=== PATIENT | male | born 1955 | race Caucasian/White ===

== ENCOUNTER 2018-04-14 19:15 | Inpatient (IN) | payer MEDICAID ==
[~2018-04-14] VITALS: Ht 167.6 cm; Wt 84.8 kg
[2018-04-14 19:20] VITALS: BP 134/86
--- NOTE | 2018-04-14 19:25 | NUR ---
TO LOBBY VIA W/C, WITH DAUGHTER, CATE DE LA PAZ NOTED.
--- NOTE | 2018-04-14 19:35 | NUR ---
PATIENT COMPLAINED OF CHEST CHEST PAIN, EKG DONE.
--- NOTE | 2018-04-14 20:38 | NUR ---
PT TAKEN TO BED 05 BY WHEELCHAIR.
--- NOTE | 2018-04-14 20:40 | NUR ---
PT MARY CARMEN AND PRESENTED ER WITH C/O CHEST, LOWER AND UPPER BACK X TODAY. PT FAMILY STATED THAT SHE FOUND HIM ON THE FLOOR WITH SEVERE PAIN. PT FAMILY STATED THAT HE WAS AT [facility] EARLIER TODAY. PT STATED THAT HIS BACK PAIN IS STABBING AND IS A LEVEL 10/10 AT THIS TIME. A/O X 4. FAMILY AT BEDSIDE.DENIES N/V/D; SKIN IS PINK/WARM/DRY; VSS; PATIENT POSITIONED FOR COMFORT; HOB ELEVATED; BEDRAILS UP X2; BED DOWN. ER MD MADE AWARE OF PT STATUS.
[2018-04-14 20:44] LABS: APPEARANCE,URINE CLEAR (CLEAR); COLOR,URINE YELLOW (YELLOW)
[2018-04-14 20:45] LABS: BILIRUBIN,URINE NEGATIVE (NEGATIVE); BLOOD, URINE NEGATIVE (NEGATIVE); LEUKOCYTE ESTERASE ,URINE NEGATIVE (NEGATIVE); NITRITE, URINE NEGATIVE (NEGATIVE); UGLUCOSE NEGATIVE (NEGATIVE)
[2018-04-14 20:51] LABS: BARBITURATE, URINE NEG. ng/ml (NEG <=200); BENZODIAZEPINE, URINE NEG. ng/mL (NEG <=200); CANNABINOID, URINE NEG. ng/mL (NEG <=50); COCAINE, URINE NEG. ng/mL (NEG <=300); OPIATE, URINE NEG. ng/mL (NEG <=2000); PHENCYCLIDINE SCREEN,URINE NEG. ng/mL (NEG <=25)
[2018-04-14] MEDS ORDERED: NACL 0.9% 1,000 ML IV ONE (20:55)
[2018-04-14] MEDS ORDERED: ASPIRIN 325 MG TAB PO ONE (20:55)
[2018-04-14] MEDS ORDERED: ALBUTEROL SULFATE/IPRATROPIU 3 ML SOL IH ONE (20:55)
--- NOTE | 2018-04-14 21:06 | NUR ---
Respiratory Therapist at bedside for respiratory intervention.
[2018-04-14 21:23] LABS: BASOPHILS # (AUTO) 0.1 K/uL (0.00-0.22); BASOPHILS % (AUTO) 0.7 % (0.0-2.0); EOSINOPHILS # (AUTO) 0.1 K/uL (0-0.4); EOSINOPHILS % (AUTO) 0.9 % (0.0-4.0); HEMATOCRIT 52.8 % (36-52); HEMOGLOBIN 17.8 g/dL (12.0-18.0); LYMPHOCYTES # (AUTO) 2.8 K/uL (2.0-11.5); LYMPHOCYTES % (AUTO) 33.4 % (20.5-51.1); MEAN CORPUSCULAR HEMOGLOBIN 31 pg (27-31); MEAN CORPUSCULAR HGB CONC 34 g/dL (33-37); MEAN CORPUSCULAR VOLUME 91.1 fL (80-94); MONOCYTES # (AUTO) 0.5 K/uL (0.8-1.0); MONOCYTES % (AUTO) 6.1 % (1.7-9.3); NEUTROPHILS % (AUTO) 58.9 % (42.2-75.2); PLATELET COUNT (AUTO) 290 K/uL (140-450); RED CELL DISTRIBUTION WIDTH 12.9 % (11.6-13.7); WHITE BLOOD COUNT (AUTO) 8.5 K/uL (4.8-10.8)
[2018-04-14 21:33] LABS: ANION GAP 12.8 (8-16); CARBON DIOXIDE 32.8 mmol/L (21-32); CREATININE 0.9 mg/dL (0.7-1.3); POTASSIUM 4.6 mmol/L (3.5-5.1)
[2018-04-14 21:45] LABS: ALBUMIN 4.1 g/dL (3.4-5.0); TOTAL BILIRUBIN 0.4 mg/dL (0.0-1.0)
[2018-04-14] MEDS ORDERED: MORPHINE SULFATE 4 MG/ML SYR IVP ONE (22:00)
[2018-04-14] MEDS ORDERED: ONDANSETRON 4 MG/2 ML VIAL IVP ONE (22:00)
[2018-04-14] MEDS: chlordiazePOXIDE 25 MG CAP PO SCH (22:05)
[2018-04-14] MEDS ORDERED: MORPHINE SULFATE 2 MG/ML SYR IVP PRN (22:05)
[2018-04-14] MEDS ORDERED: ACETAMINOPHEN 325 MG TAB PO PRN (22:05)
[2018-04-14] MEDS ORDERED: DOCUSATE SODIUM 100 MG GELCAP PO PRN (22:05)
[2018-04-14] MEDS ORDERED: ONDANSETRON 4 MG/2 ML VIAL IM/IVP PRN (22:05)
[2018-04-14 22:50] LABS: PROTHROMBIN TIME 10.4 secs (10.8-13.4)
--- NOTE | 2018-04-14 22:57 | NUR ---
Patient will be admitted to care of DR. SAL. Admited to MED SURG. Will go to room 111A. Belongings list completed. Report to ASIF GIFFORD . VITALS STABLE.
--- NOTE | 2018-04-14 22:57 | NUR ---
Pt report given to ASIF GIFFORD . Transfer of care at this time.VITALS STABLE.
--- NOTE | 2018-04-14 23:00 | NUR ---
PT ARRIVED AT UNIT VIA GURNEY, PT AMBULATED TO RESTROOM AND TO BED, REPORT RECEIVED FROM ER NURSE ABHIJIT GIFFORD, PT STABLE, NO DISTRESS NOTED, IV TO L WRIST 22G PATENT, INTACT, SL, PT ON ROOM AIR, NO SOB NOTED, V/S TAKEN, PT PO2 88% ADMINISTERED 2LPM O2 VIA NC, PT ANXIOUS, STATED HAVING PAIN, PT JUST HAD MORPHINE ABOUT HALF AN HOUR AGO, WILL NOTIFIED , ORIENT PT TO ROOM, BED, CALL LIGHT, MRSA SWAB TAKEN, NOTIFIED PT REGARDING DRJeremias ORDER OF NPO, PT STATED UNDERSTANDING, INITIAL ASSESSMENT DONE, ALL SAFETY PRECAUTION MET, CALL LIGHT WITHIN REACH, WILL CONTINUE TO MONITOR.
[2018-04-14 23:03] LABS: CHOL/HDL RATIO 3.4 (1-4.5); FREE T4 (FREE THYROXINE) 1.01 ng/dL (0.76-1.46); MAGNESIUM 2.1 mg/dL (1.8-2.4); PHOSPHORUS 3.2 mg/dL (2.5-4.9); THYROID STIMULATING HORMONE 0.92 uIU/mL (0.34-3.74)
[2018-04-14] MEDS: LORazepam 2 MG/ML VIAL IVP PRN (23:21)
--- NOTE | 2018-04-14 23:21 | NUR ---
PER DR. LAMB TO GIVE PT ATIVAN AT THIS MOMENT FOR ANXIETY, ATIVAN ADMINISTERED, PT TOLERATED WELL, NO DISTRESS NOTED, CALL LIGHT WITHIN REACH, WILL CONTINUE TO MONITOR.
[2018-04-14 23:30] VITALS: BP 115/72
[2018-04-14] MEDS ORDERED: ALBUTEROL HFA MDI 90 MCG/ACTUATION 8 GM INH PRN (23:50)
[2018-04-14] MEDS: KETOROLAC 30 MG/ML VIAL IVP PRN (23:52)
--- NOTE | 2018-04-14 23:52 | NUR ---
PT STATED STILL HAVING PAIN, TALK TO DR. LAMB REGARDING PT COMPLAINTS, STATED OK TO GIVE TORADOL AT THIS MOMENT, MEDICATION GIVEN PER MD ORDER, PT TOLERATED WELL, NO DISTRESS NOTED, CALL LIGHT WITHIN REACH, WILL CONTINUE TO MONITOR.
[2018-04-15] MEDS ORDERED: ALBUTEROL SULFATE/IPRATROPIU 3 ML SOL IH PRN
[2018-04-15] MEDS: DEXT 5% / NACL 0.45% 1,000 ML IV SCH ×3 (00:11→14:05)
--- NOTE | 2018-04-15 00:16 | NUR ---
LIBRIUM HELD, PER DR. LAMB TO NOT GIVE IT RIGHT NOW, PT ALREADY BEEN GIVEN ATIVAN EARLIER, PT RESTING, NO DISTRESS NOTED, CALL LIGHT WITHIN REACH, WILL CONTINUE TO MONITOR.
[2018-04-15] MEDS: methylPREDNISolone SS 125 MG/2 ML VIAL IVP SCH ×3 (00:23→19:15)
[2018-04-15] MEDS ORDERED: INFLUENZA VIRUS VACCINE QUAD 0.5 ML SYR IMVAC PRN (00:45)
--- NOTE | 2018-04-15 06:37 | NUR ---
PT WENT TO CT WITH TECH, IN STABLE CONDITION NO DISTRESS NOTED.
--- NOTE | 2018-04-15 07:05 | NUR ---
RECEIVED REPORT FROM PM SHIFT NURSE. AWAITING PT TO RETURN FROM CT.
--- NOTE | 2018-04-15 07:05 | NUR ---
ENDORSED PT TO DAY SHIFT NURSE OMAYRA GIFFORD, PT STILL AT CT.
--- NOTE | 2018-04-15 07:32 | NUR ---
PT CAME BACK FROM CT. ABLE TO AMB FROM WC TO BED WITH STEADY GAIT. NO C/O PAIN AT THIS TIME. CALL LIGHT WITHIN REACH. RT WRIST & RT AC IV INTACT & ASYMPTOMATIC WHEN FLUSHED WITH NS. RESUMED NS @ 130ML/HR TO RT WRIST.
[2018-04-15 08:00] VITALS: BP 123/63
[2018-04-15] MEDS: KETOROLAC 30 MG/ML VIAL IVP PRN ×2 (08:05→17:06)
--- NOTE | 2018-04-15 08:11 | NUR ---
PATIENT STATED SOB WHEN ASKED. VITALS: RATE 18, PULSE 66, 85% ON 28%, BREATH SOUNDS DIMINISHED. ADMINISTERED DUONEB TX- O2 SATURATIONS 98% DURING TX. BREATH SOUNDS IMPROVED. WILL RETURN IN 15 MINUTES TO REASSESS ON 2L NASAL CANNULA.
[2018-04-15 08:16] LABS: BASOPHILS % (AUTO) 0.2 % (0.0-2.0); EOSINOPHILS % (AUTO) 0.1 % (0.0-4.0); HEMATOCRIT 46.3 % (36-52); HEMOGLOBIN 15.6 g/dL (12.0-18.0); LYMPHOCYTES # (AUTO) 0.8 K/uL (2.0-11.5); LYMPHOCYTES % (AUTO) 12.7 % (20.5-51.1); MEAN CORPUSCULAR HEMOGLOBIN 31 pg (27-31); MEAN CORPUSCULAR HGB CONC 34 g/dL (33-37); MEAN CORPUSCULAR VOLUME 91.4 fL (80-94); MONOCYTES % (AUTO) 0.5 % (1.7-9.3); NEUTROPHILS # (AUTO) 5.4 K/uL (1.8-7.7); NEUTROPHILS % (AUTO) 86.5 % (42.2-75.2); PLATELET COUNT (AUTO) 247 K/uL (140-450); RED BLOOD CELL COUNT(AUTO) 5.07 MIL/uL (4.20-6.10); RED CELL DISTRIBUTION WIDTH 13.2 % (11.6-13.7); WHITE BLOOD COUNT (AUTO) 6.3 K/uL (4.8-10.8)
[2018-04-15 08:28] LABS: CARBON DIOXIDE 27.4 mmol/L (21-32); CREATININE 0.7 mg/dL (0.7-1.3); POTASSIUM 4.4 mmol/L (3.5-5.1)
--- NOTE | 2018-04-15 08:35 | NUR ---
PATIENT O2 INCREASED FROM 2L TO 3L. PATIENT WENT FROM O2 SATURATION OF 85% TO 94%. WILL CONTINUE TO MONITOR.
[2018-04-15 08:36] LABS: MAGNESIUM 1.7 mg/dL (1.8-2.4); PHOSPHORUS 2.4 mg/dL (2.5-4.9)
--- NOTE | 2018-04-15 08:41 | NUR ---
PATIENT HAS BEEN SCREENED AND CATEGORIZED MODERATE NUTRITION RISK. PATIENT WILL BE SEEN WITHIN 3-5 DAYS OF ADMISSION. 04/17/18 04/19/[address]
[2018-04-15] MEDS: TAMSULOSIN 0.4 MG CAP PO SCH (09:03)
[2018-04-15] MEDS: LISINOPRIL 10 MG TAB PO SCH (09:04)
[2018-04-15] MEDS: THIAMINE 100 MG TAB PO SCH (09:04)
[2018-04-15] MEDS: ASPIRIN 81 MG TAB.CHEW PO SCH (09:04)
[2018-04-15] MEDS: MULTIVITAMIN 1 TAB PO SCH (09:04)
[2018-04-15] MEDS: PANTOPRAZOLE 40 MG INJ VIAL IVP SCH (09:04)
[2018-04-15] MEDS: METOPROLOL 50 MG TAB PO SCH ×2 (09:05→20:06)
[2018-04-15] MEDS: FOLIC ACID 1 MG TAB PO SCH (09:05)
[2018-04-15] MEDS: chlordiazePOXIDE 25 MG CAP PO SCH ×3 (09:05→17:03)
--- NOTE | 2018-04-15 09:05 | NUR ---
PT ASLEEP, FLACC 0. AROUSABLE BY AUDITORY STIMULI. PT ABLE TAKE PO MEDS WELL. NO C/O PAIN AT THIS TIME. PT WENT BACK TO SLEEP. CALL LIGHT WITHIN REACH.
--- NOTE | 2018-04-15 11:00 | NUR ---
PT C/E FEELING HUNGRY. INFORMED PT THAT HE IS STILL NPO EXCEPT MEDS TO REST HIS BOWEL. PT VERBALIZED UNDERSTANDING BUT CONT TO REQUEST FOR FOOD. DR GIL AWARE. PT INFORMED RE: NEED FOR STOOL COLLECTION FOR HEMOCCULT TEST. PT VERBALIZED UNDERSTANDING OF PROPER USE OF SPECIMEN HAT & TO CALL NURSE AFTER BM. CALL LIGHT WITHIN REACH.
[2018-04-15] MEDS: LORazepam 2 MG/ML VIAL IVP PRN ×3 (13:18→20:06)
--- NOTE | 2018-04-15 13:18 | NUR ---
ADMINISTERED LORAZEPAM FOR ANXIETY/AGITATION WITH TREMORS. PT DENIES ANY PAIN AT THIS TIME. RESPIRATIONS EVEN & UNLABORED. FULL LIQUID DIET TRAY GIVEN. CALL LIGHT WITHIN REACH.
[2018-04-15] MEDS ORDERED: ONDANSETRON 4 MG/2 ML VIAL IM/IVP PRN (13:20)
[2018-04-15] MEDS ORDERED: NICOTINE TRANSD SYS 21 MG/24 HR PATCH TD SCH (13:30)
--- NOTE | 2018-04-15 14:18 | NUR ---
PT ASLEEP AT THIS TIME. RESPIRATIONS EVEN & UNLABORED. NO SIGNS OF DISTRESS. CALL LIGHT WITHIN REACH.
[2018-04-15 16:00] VITALS: BP 112/65
--- NOTE | 2018-04-15 17:34 | NUR ---
LORAZEPAM ADMINISTERED FOR ANXIETY/AGITATION WITH TREMORS. PT FOUND TO BE EATING BURGERS IN ROOM, STATES FAMILY BROUGHT IT FOR HIM. EXPLAINED TO PT RE: DIET ORDER & BENEFITS OF RESTING BOWELS. PT VERBALIZED UNDERSTANDING BUT CONTINUE TO EAT HIS BURGER. PT STATES HE FEELS FINE, NO NAUSEA AT THIS TIME. CALL LIGHT WITHIN REACH.
--- NOTE | 2018-04-15 19:14 | NUR ---
BEDSIDE REPORT GIVEN TO CHIEF OPTOMETRY SERVICE NURSE ASIF. BURSAR AT BEDSIDE SPEAKING WITH PT.
--- NOTE | 2018-04-15 19:15 | NUR ---
RECEIVED BEDSIDE REPORT FROM DAY SHIFT NURSE OMAYRA RN, PT STABLE, NO DISTRESS NOTED, IV TO R AC 20G PATENT, INTACT AND R WRIST 20G PATENT INTACT, INFUSING D5 1/2NS @ 150ML/HR, INFUSING WELL, PT ON 3LPM O2 VIA NC, NO SOB NOTED, PT HAS NO C/O PAIN AT THIS MOMENT, INITIAL ASSESSMENT DONE, ALL SAFETY PRECAUTION MET, CALL LIGHT WITHIN REACH, WILL CONTINUE TO MONITOR.
--- NOTE | 2018-04-15 20:06 | NUR ---
DUE MEDICATION ADMINISTERED, PT STATED FEELING ANXIOUS, AND NERVOUS, ATIVAN ORDERED ADMINISTERED, PT TOLERATED WELL, CALL LIGHT WITHIN REACH, WILL CONTINUE TO MONITOR.
[2018-04-15] MEDS ORDERED: SIMVASTATIN 40 MG TAB PO SCH (21:00)
--- NOTE | 2018-04-15 22:40 | NUR ---
PT SLEEPING,NO DISTRESS NOTED, CALL LIGHT WITHIN REACH, WILL CONTINUE TO MONITOR.
[2018-04-16] VITALS: BP 134/67
--- NOTE | 2018-04-16 00:02 | NUR ---
PT AMBULATED TO RESTROOM AND BACK TO BED, NO DISTRESS NOTED, CALL LIGHT WITHIN REACH, WILL CONTINUE TO MONITOR.
[2018-04-16] MEDS: DEXT 5% / NACL 0.45% 1,000 ML IV SCH ×2 (02:09→03:25)
--- NOTE | 2018-04-16 02:49 | NUR ---
PT PULLED OUT R FA IV 20G, CATH INTACT, PT STABLE, NO DISTRESS NOTED, CALL LIGHT WITHIN REACH, WILL CONTINUE TO MONITOR.
--- NOTE | 2018-04-16 05:19 | NUR ---
PT HAS NOT DONE ANY BM DURING SHIFT, WILL ENDORSE TO NEXT SHIFT THAT THERE IS PENDING ORDER FOR OCCULT BLOOD COLLECTION.
[2018-04-16] MEDS: LORazepam 2 MG/ML VIAL IVP PRN (06:29)
--- NOTE | 2018-04-16 06:29 | NUR ---
PT STATED FEELING ANXIOUS AND NERVOUS, PT SHAKING, ATIVAN ORDERED PER MD ORDER GIVEN, PT TOLERATED WELL, NO DISTRESS NOTED, CALL LIGHT WITHIN REACH, WILL CONTINUE TO MONITOR.
[2018-04-16] MEDS: methylPREDNISolone SS 125 MG/2 ML VIAL IVP SCH (06:30)
--- NOTE | 2018-04-16 06:40 | NUR ---
PT IV INFILTRATED NEW IV INSERTED TO L FA 22 G PATENT, INTACT, INFUSING WELL, PT OLD IV 20 G TO R AC TAKEN OUT, CATH INTACT, PT TOLERATED WELL, NO DISTRESS NOTED, CALL LIGHT WITHIN REACH, WILL CONTINUE TO MONITOR.
--- NOTE | 2018-04-16 07:04 | NUR ---
DECREASED PT FIO2 TO 2 L NC . SPO2 97%. WILL CONTINUE TO MONITOR.
[2018-04-16 07:19] LABS: BASOPHILS % (AUTO) 0.2 % (0.0-2.0); HEMATOCRIT 43.8 % (36-52); HEMOGLOBIN 14.6 g/dL (12.0-18.0); LYMPHOCYTES # (AUTO) 1.1 K/uL (2.0-11.5); LYMPHOCYTES % (AUTO) 6.1 % (20.5-51.1); MEAN CORPUSCULAR HEMOGLOBIN 30 pg (27-31); MEAN CORPUSCULAR HGB CONC 33 g/dL (33-37); MEAN CORPUSCULAR VOLUME 90.8 fL (80-94); MONOCYTES # (AUTO) 0.5 K/uL (0.8-1.0); MONOCYTES % (AUTO) 2.6 % (1.7-9.3); NEUTROPHILS % (AUTO) 91.1 % (42.2-75.2); PLATELET COUNT (AUTO) 241 K/uL (140-450); RED BLOOD CELL COUNT(AUTO) 4.83 MIL/uL (4.20-6.10); WHITE BLOOD COUNT (AUTO) 17.6 K/uL (4.8-10.8)
--- NOTE | 2018-04-16 07:30 | NUR ---
RECEIVED BEDSIDE REPORT FROM WATER TREATMENT PLANT REPAIRER NURSE RN. PT IS AAOX4, NO S/S OF ACUTE DISTRESS NOTED, IV TO LEFT FA 22G, PATENT, INTACT, INFUSING D5 1/2NS @ 150ML/HR. PT ON 2L O2 VIA NC. PT DENIES PAIN, INITIAL ASSESSMENT DONE, MADE PT AWARE STOOL SAMPLE NEEDED, PT VERBALIZED UNDERSTANDING. ALL SAFETY PRECAUTION MET, CALL LIGHT WITHIN REACH, WILL CONTINUE TO MONITOR.
--- NOTE | 2018-04-16 07:36 | NUR ---
ENDORSED PT TO DAY SHIFT NURSE KEIRY RN, PT STABLE, NO DISTRESS NOTED, CALL LIGHT WITHIN REACH.
[2018-04-16 07:47] LABS: ANION GAP 10.8 (8-16); CARBON DIOXIDE 27.7 mmol/L (21-32); CREATININE 0.8 mg/dL (0.7-1.3); POTASSIUM 4.5 mmol/L (3.5-5.1)
[2018-04-16 08:00] VITALS: BP 148/71
[2018-04-16 08:21] LABS: T4 (THYROXINE) 9.4 ug/dL (4.5-12.0)
[2018-04-16] MEDS ORDERED: NICOTINE TRANSD SYS 21 MG/24 HR PATCH TD SCH (09:00)
[2018-04-16] MEDS: PANTOPRAZOLE 40 MG INJ VIAL IVP SCH (09:22)
[2018-04-16] MEDS: ASPIRIN 81 MG TAB.CHEW PO SCH (09:23)
[2018-04-16] MEDS: MULTIVITAMIN 1 TAB PO SCH (09:23)
[2018-04-16] MEDS: LISINOPRIL 10 MG TAB PO SCH (09:23)
[2018-04-16] MEDS: FOLIC ACID 1 MG TAB PO SCH (09:24)
[2018-04-16] MEDS: METOPROLOL 50 MG TAB PO SCH (09:24)
[2018-04-16] MEDS: chlordiazePOXIDE 25 MG CAP PO SCH (09:24)
--- NOTE | 2018-04-16 09:24 | NUR ---
WEANING OFF O2 FROM PT. NO S/S OF ACUTE DISTRESS AT THIS TIME
[2018-04-16] MEDS: TAMSULOSIN 0.4 MG CAP PO SCH (09:32)
[2018-04-16] MEDS: THIAMINE 100 MG TAB PO SCH (09:32)
--- NOTE | 2018-04-16 09:55 | NUR ---
PRODUCTION MACHINE TENDER IS HERE TO DO CHEST X RAY. CHECKED O2 SAT, 93 % ON ROOM AIR.
--- NOTE | 2018-04-16 10:50 | NUR ---
PT LEAVING AGAINST MEDICAL ADVICE. DR VARGHESE HAS TALKED TO PT. PT SIGNED AMA. MILES WEST PROVIDED, IV DC'D, TIP INTACT, PRESSURE APPLIED. WALKED WITH PT TO MESFIN. Addendum: 04/16/18 at 1444 by Sloan Shannon RN PT DENIED PAIN, SAID HE FELT BETTER. 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
[2018-04-16] MEDS ORDERED: PIPER/TAZO 3.375GM/D5W PREMIX 50 ML IV SCH (12:00)
--- NOTE | 2018-04-16 14:57 | NUR ---
[facility] FILED Id: [id number]
[2018-04-16] MEDS ORDERED: methylPREDNISolone SS 40 MG/ML VIAL IVP SCH (19:00)
[2018-04-17] MEDS ORDERED: methylPREDNISolone SS 40 MG/ML VIAL IVP SCH (19:00)
== END 2018-04-16 10:50 | disposition left against medical advice (07) | DRG 282 ==
LOC: EDBD 19:15 → MED 19:15 → MMU 22:04 → MTU 22:38
PROVIDERS: ADMIT Family Medicine; ATTEND Family Medicine
DX: K85.90 Acute pancreatitis without necrosis or infection, unspecified (principal); G92 Toxic encephalopathy; J18.9 Pneumonia, unspecified organism; K92.2 Gastrointestinal hemorrhage, unspecified; K21.9 Gastro-esophageal reflux disease without esophagitis; Y90.8 Blood alcohol level of 240 mg/100 ml or more; N40.0 Benign prostatic hyperplasia without lower urinary tract symptoms; I10 Essential (primary) hypertension; E11.9 Type 2 diabetes mellitus without complications; F17.210 Nicotine dependence, cigarettes, uncomplicated; F10.129 Alcohol abuse with intoxication, unspecified; M19.90 Unspecified osteoarthritis, unspecified site; M94.0 Chondrocostal junction syndrome [Tietze]; Z53.21 Procedure and treatment not carried out due to patient leaving prior to being seen by health care provider; Z88.5 Allergy status to narcotic agent; Z95.1 Presence of aortocoronary bypass graft; Z91.14 Patient's other noncompliance with medication regimen; Z79.84 Long term (current) use of oral hypoglycemic drugs
CPT/HCPCS: 36415; 36600; 71045; 71260; 80048; 80053; 80305; 81003; 82140; 82150; 82550; 82803; 83036; 83615; 83690; 83735; 83880; 84100; 84436; 84439; 84443; 84484; 85025; 85610; 85730; 87081; 93005; 94640; 96361; 96374; 96375; 99285; C9113; G0482; J1885; J2060; J2270; J2405; J2543; J2930; J7620; Q0092; Q9967

== ENCOUNTER 2018-04-16 15:27 | Emergency (ER) | payer MEDICAID ==
[~2018-04-16] VITALS: Ht 172.7 cm; Wt 87.7 kg
--- NOTE | 2018-04-16 15:32 | NUR ---
PT AMBULATES TO BED 6
[2018-04-16 15:36] VITALS: BP 145/78
--- NOTE | 2018-04-16 15:44 | NUR ---
63/M C/O LEFT SIDE CHEST PAIN RADIATING TO RIGHT CHEST & UPPER BACK X 3MONTHS. HX: PROSTATED PROBLEM, HTN. HOME MED: LISINOPRIL, MELOXICA,, TAMSULOSIN & FINASTERIDE. DENIES N/V/D; SKIN IS PINK/WARM/DRY; AAOX4 WITH EVEN AND STEADY GAIT; LUNGS CLEAR BL. PT DENIES ANY FEVER, SOB, OR COUGH AT THIS TIME; PATIENT STATES PAIN OF 7/10 AT THIS TIME. PATIENT POSITIONED FOR COMFORT; HOB ELEVATED; BEDRAILS UP X2; BED DOWN. ER MD MADE AWARE OF PT STATUS.
[2018-04-16] MEDS ORDERED: NACL 0.9% 1,000 ML IV ONE (15:45)
[2018-04-16] MEDS ORDERED: ASPIRIN 81 MG TAB.CHEW PO ONE (15:45)
--- NOTE | 2018-04-16 15:55 | NUR ---
Patient being evaluated by physician at bedside.
--- NOTE | 2018-04-16 16:08 | NUR ---
XRAY AT BEDSIDE
[2018-04-16 16:18] LABS: HEMOGLOBIN 14.4 g/dL (12.0-18.0); MEAN CORPUSCULAR HEMOGLOBIN 30 pg (27-31); MEAN CORPUSCULAR HGB CONC 34 g/dL (33-37); MEAN CORPUSCULAR VOLUME 90.2 fL (80-94); PLATELET COUNT (AUTO) 251 K/uL (140-450); RED BLOOD CELL COUNT(AUTO) 4.76 MIL/uL (4.20-6.10); RED CELL DISTRIBUTION WIDTH 12.4 % (11.6-13.7); WHITE BLOOD COUNT (AUTO) 20.6 K/uL (4.8-10.8)
[2018-04-16 16:42] LABS: BARBITURATE, URINE NEG. ng/ml (NEG <=200); BENZODIAZEPINE, URINE POS. ng/mL (NEG <=200); CANNABINOID, URINE NEG. ng/mL (NEG <=50); COCAINE, URINE NEG. ng/mL (NEG <=300); OPIATE, URINE NEG. ng/mL (NEG <=2000); PHENCYCLIDINE SCREEN,URINE NEG. ng/mL (NEG <=25)
[2018-04-16 16:46] LABS: PROTHROMBIN TIME 10.5 secs (10.8-13.4)
[2018-04-16 16:54] LABS: LYMPHOCYTES # (AUTO) 0.7 K/uL (2.0-11.5); LYMPHOCYTES % (AUTO) 3.4 % (20.5-51.1); MONOCYTES # (AUTO) 0.6 K/uL (0.8-1.0); MONOCYTES % (AUTO) 2.9 % (1.7-9.3); NEUTROPHILS # (AUTO) 19.3 K/uL (1.8-7.7); NEUTROPHILS % (AUTO) 93.7 % (42.2-75.2)
--- NOTE | 2018-04-16 17:00 | NUR ---
PT STATED " I WANT MORPHINE FOR PAIN". NOTIFIED DR RIVERA. MADE AWARE. Addendum: 04/16/18 at 1804 by [email or web address] INFORMED PT THAT WAIT FOR LAB RESULTS.
--- NOTE | 2018-04-16 17:21 | NUR ---
PT STATED " I DON'T WANT IV FLUID. I WANT TO GO HOME" NOTIFIED DR RIVERA.
[2018-04-16 17:25] LABS: ALBUMIN 3.5 g/dL (3.4-5.0); ASPARTATE AMINOTRANSFERASE 28 U/L (15-37); CARBON DIOXIDE 22.9 mmol/L (21-32); CHLORIDE 100 mmol/L (98-107); CREATININE 0.9 mg/dL (0.7-1.3); GFR ARICAN-AMERICAN 109 mL/min (>90); GLUCOSE 324 mg/dL (74-106); POTASSIUM 3.9 mmol/L (3.5-5.1); SODIUM SERUM 136 mmol/L (136-145); TOTAL BILIRUBIN 0.5 mg/dL (0.0-1.0); UREA NITROGEN, BLOOD 14 mg/dL (7-18)
[2018-04-16 17:27] LABS: SALICYLATE < 2.8 mg/dL (2.8-20.0)
[2018-04-16 17:35] VITALS: BP 144/82
[2018-04-16] MEDS ORDERED: PIPERACILLIN/TAZOBACTAM 3.375 GM in DEXTROSE 5% 50 ML IV ONE (17:35)
--- NOTE | 2018-04-16 17:35 | NUR ---
Patient does not wish to proceed with medical care recommended by DR RIVERA. Patient given information related to possible complications, up to and including , which could occur as a result of leaving hospital at this time. Patient verbalizes understanding of risks involved leaving against medical advice. Patient has signed AMA form.
[2018-04-16 17:41] LABS: LYMPHOCYTES % (MANUAL) 3 % (20-46); MONOCYTES % (MANUAL) 3 % (5-12)
[2018-04-16 17:49] LABS: ACETAMINOPHEN < 0.5 ug/ml (10-30)
== END 2018-04-16 17:35 | disposition home or self-care (01) ==
LOC: MED 15:27
DX: D72.829 Elevated white blood cell count, unspecified (principal); I10 Essential (primary) hypertension; F17.200 Nicotine dependence, unspecified, uncomplicated; Z88.5 Allergy status to narcotic agent
CPT/HCPCS: 36415; 71045; 80053; 80305; 81002; 84484; 85025; 85610; 85730; 93005; 99285; G0480; G0482; Q0092